=== PATIENT | male | born 1965 | race Caucasian/White ===

== ENCOUNTER 2020-09-18 08:20 | Outpatient (CLI) | payer MEDICARE, MEDICAID, SELFPAY ==
--- NOTE | 2020-09-18 08:34 | CTR_ITS ---
PROCEDURE INFORMATION: Exam: CTA Angiogram of the Abdominal Aorta and Bilateral Lower Extremities (Run-off) With IV Contrast Exam date and time: 09/18/2020 8:34 AM Age: 55 years old Clinical indication: Other: Lower extremity pain/swelling/cramping; Additional info: Peripheral vascular dz/abnormal cindy TECHNIQUE: Imaging protocol: CT angiogram of the abdominal aorta, pelvis and bilateral lower extremities with IV iodinated contrast. 3D rendering (Not supervised by radiologist): MIP and/or 3D reconstructed images were created by the technologist. Radiation optimization: All CT scans at this facility use at least one of these dose optimization techniques: automated exposure control; mA and/or kV adjustment per patient size (includes targeted exams where dose is matched to clinical indication); or iterative reconstruction. Contrast material: OMNI 350; Contrast volume: 95 ml; Contrast route: INTRAVENOUS (IV); COMPARISON: No relevant prior studies available. RADIATION DOSE METRICS: Total DLP (mGy-cm): 1921.54 FINDINGS: Aorta: There is atherosclerotic calcification in the aorta. There is no aortic aneurysm. No aortic dissection. Celiac trunk and mesenteric arteries: No occlusion or significant stenosis. Renal arteries: No occlusion or significant stenosis. Right iliac arteries: There is calcified plaque in the right common and external iliac arteries. There is mild external iliac artery stenosis.. Right femoral/popliteal arteries: There is prominent plaquing in the right common femoral artery and origins of the superior femoral and deep femoral arteries. There are focal stenoses at the origins of the right superficial femoral artery and deep femoral artery. There is calcified plaque in the superficial femoral artery with focal moderate distal stenosis. The popliteal artery is patent.. Right infrapopliteal arteries: The right anterior tibial artery is occluded at the mid calf. The dorsalis pedis reconstitutes via the peroneal artery. No significant stenosis is seen in the right peroneal and posterior tibial arteries.. Left iliac arteries: There is prominent atherosclerotic plaque in the left external iliac artery with high-grade stenosis.. Left femoral/popliteal arteries: There is prominent atherosclerotic plaque in the left superficial femoral artery with complete occlusion of the midportion. The distal portion and left popliteal artery reconstitute via collateral vessels. Left infrapopliteal arteries: The left anterior tibial artery is occluded in the mid calf. The dorsalis pedis artery reconstitutes via collaterals. No significant stenosis is seen in the left posterior tibial and peroneal arteries.. Liver: Fatty liver. Gallbladder and bile ducts: Cholecystectomy. Normal bile ducts. Pancreas: Unremarkable. No mass. No ductal dilation. Spleen: Normal. No splenomegaly. Adrenals: Normal. No mass. Kidneys and ureters: Normal. No mass. Stomach and bowel: Unremarkable. No obstruction. No mucosal thickening. Appendix: No evidence of appendicitis. Bladder: Unremarkable. No mass. Reproductive: Unremarkable as visualized. Intraperitoneal space: Unremarkable. No free air. No significant fluid collection. Lymph nodes: No lymphadenopathy. Bones/joints: No acute fracture. No dislocation. Soft tissues: Unremarkable. CT/CT angio abd aorta runof [id number] IMPRESSION: 1. High-grade stenosis in the left external iliac artery. 2. Prominent plaque in the right common femoral artery with stenoses at the origins of the right superficial femoral and deep femoral arteries. 3. The mid left superficial femoral artery is occluded. The distal portion and popliteal artery reconstitute via collaterals. 4. Multiple [id number]-dz-mwaeebru stenoses in the right superficial femoral artery and calf vessels. The anterior tibial arteries are occluded in the mid calf bilaterally. Radiation Dose CTDIVOL = (mGy): DLP = 1921.54 (mGy-cm)
[2020-09-18] MEDS: iohexol 350 mg/mL 100 mL Btl IV (09:06)
== END 2020-09-18 08:21 | disposition home or self-care (01) ==
LOC: RAD 08:30
PROVIDERS: PCP Family Medicine; Visit Provider Family Medicine
DX: I73.9 Peripheral vascular disease, unspecified (principal); R09.89 Other specified symptoms and signs involving the circulatory and respiratory systems; R68.89 Other general symptoms and signs; I70.8 Atherosclerosis of other arteries
CPT/HCPCS: 75635

== ENCOUNTER → 2024-08-13 15:30 | Outpatient (BNVA) | payer MEDICARE, MEDICAID, SELFPAY | PROVIDERS: PCP Family Medicine; Visit Provider Family Medicine | DX: N39.0 Urinary tract infection, site not specified (principal); E11.9 Type 2 diabetes mellitus without complications; R63.1 Polydipsia; R35.89 Other polyuria | CPT/HCPCS: 80053; 83036; 85025 ==

== ENCOUNTER → 2024-12-10 15:27 | Outpatient (BNVA) | payer MEDICARE, MEDICAID, SELFPAY | PROVIDERS: PCP Family Medicine; Visit Provider Family Medicine | DX: E11.65 Type 2 diabetes mellitus with hyperglycemia (principal); K76.0 Fatty (change of) liver, not elsewhere classified; F41.8 Other specified anxiety disorders; I25.2 Old myocardial infarction | CPT/HCPCS: 80053; 80061; 81000; 82043; 83036; 84439; 84443; 85025 ==

== ENCOUNTER 2024-12-15 14:34 | Inpatient (IN) | payer MEDICARE, MEDICAID, SELFPAY ==
[2024-12-15] VITALS (63 sets, daily range): BP systolic 87–131; BP diastolic 52–68; PULSE 86–101; RESP 10–29; TEMP 36.6; O2SAT 95–100; BMI 22.2
--- OUTSIDE RECORDS SUMMARY | 2024-12-15 14:37 | XMS_ITS | Patient Health Record ---
Author Organization [facility] Address [address] [place] [address] Care Team Providers Care Esthetics Instructor Name Role Phone ( [facility] ), PHYSICIAN NOT IDENTIFIED Primary Care Provider Unavailable Salinas Curry Unavailable [phone] Allergies Allergen (clinical drug ingredient) Drug/Non Drug Allergy documented on EMR Reaction Allergy Type Onset Date Status gabapentin Gabapentin Unknown Drug Allergy Activ e amitriptyline Amitriptyline Unknown Drug Allergy Active Reason For Referral No Information Social History Sex Assigned At : Social History Observation Description Sex Assigned At Male Vital Signs Temperature 97.4 degrees Fahrenheit 04/17/2024 Encounters Encounter Location Date Provider Diagnosis [facility] [address] [place] [address] 01/15/[address] [facility] [address] [place] [address] 02/15/[address] [facility] [address] [place] [address] 03/07/[address] [facility] [address] [place] [address] 04/17/[address] [facility] [address] [place] [address] 04/30/[address] [facility] [address] [place] [address] 03/04/[address] [facility] [address] [place] [address] 04/01/2024 Salinas Curry Plan Of Treatment No Information Insurance Providers Payer Name Payer Address Payer Phone Subscriber Number Group Number Insured Name Patient Relationship to Insured Coverage Start Date Coverage End Date Medicaid [address] [place] [phone] [id number] Jose Morgan Self - patient is the insured [employer] [address] [address] [place] [address] [phone] [id number] Jose Morgan Self - patient is the insured [employer] [address] [place] [address] [phone] [id number] Jose Morgan Self - patient is the insured Medical (General) History Medical History History ICD Code seasonal allergies Arthritis Cataracts Glaucoma fibromyalgia scoliosis Nerve Damage menieres disease
--- NOTE | 2024-12-15 14:40 | ECG_ITS ---
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 Measurements Intervals Wilson Rate: 91 P: 52 GA: 143 QRS: 44 QRSD: 77 T: 45 QT: 331 QTc: 408 Interpretive Statements SINUS RHYTHM No previous ECG available for comparison Electronically Signed On 12-15-2024 20:11:38 CDT by René Reina M.D. [email or web address] [id number]
--- NOTE | 2024-12-15 14:50 | XRR_ITS ---
PROCEDURE INFORMATION: Exam: XR Chest Exam date and time: 12/15/2024 3:03 PM Age: 59 years old Clinical indication: Other: Weakness; Additional info: Weakness; Hyperglycemia TECHNIQUE: Imaging protocol: Radiologic exam of the chest. Views: 1 view. COMPARISON: CT angio abd aorta runof [id number] 09/18/2020 9:05 AM FINDINGS: Lungs: Unremarkable. No consolidation. Pleural spaces: Unremarkable. No pleural effusion. No pneumothorax. Heart/Mediastinum: Unremarkable. No cardiomegaly. Bones/joints: Dextroscoliosis of the thoracolumbar spine. Organs: Cholecystectomy clips. XR/XR chest 1V portable [id number] IMPRESSION: No acute findings.
--- NOTE | 2024-12-15 14:51 | W.ED.RECABL ---
HPI - Recheck/Abnormal Lab/Rx General: Chief Complaint: Recheck/Abnormal Lab/Rx Stated Complaint: hyperglycemia; weakness Time Seen by Provider: 12/15/24 14:41 Source: patient and EMS Mode of arrival: EMS Limitations: no limitations History of Present Illness: 59-year-old male states been having increasing weakness over the last 3 months states has been having unintentional weight loss along with difficulty walking states today has not really been able to walk he is also newly diagnosed with diabetes sugars over 600 he denies any vomiting or diarrhea states he has pain everywhere but does not complain of any specific pain. Related Data Home Medications ?Medication ?Instructions ?Recorded ?Confirmed estradiol 2 mg tablet 6 mg PO DAILY 07/12/24 12/10/24 Held on 12/10/24. Instructions: Dose Change Previous Rx's ?Medication ?Instructions ?Recorded aspirin 81 mg chewable tablet 81 mg PO DAILY #90 tabs 07/16/24 rosuvastatin 20 mg tablet 20 mg PO DAILY #90 tabs 07/16/24 mupirocin 2 % topical ointment 1 applic topical TID #15 grams 12/10/24 ([facility]) Allergies Allergy/AdvReac Type Severity Reaction Status Date / Time amitriptyline Allergy ADR-Drowsy Verified 12/15/24 14:40 gabapentin (From Neurontin) Allergy Unknown Verified 12/10/24 14:24 [facility] ED [facility]: Medical History (Updated 12/10/24 @ 16:55 by Deepika Mendez MD) Type 2 diabetes mellitus A1C 7.03 November 2021 COPD (chronic obstructive pulmonary disease) PAD (peripheral artery disease) has had vascular surgery Hx of myocardial infarction NM stress test at [facility] preop 3.12.22 showed old small anterior wall fixed defect Depression with anxiety Screening for lung cancer Nicotine dependence, cigarettes, in remission 46pk yr hx; quit 2021; Neck pain Hyperlipidemia, mixed had been on rosuvastatin--not currently taking Non-alcoholic fatty liver disease Anxiety Menieres disease Fibromyalgia Transgender man on hormone therapy Dr. 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 Lea at [facility] Hx of hemorrhoidectomy [facility] 5.21 Hx of vascular surgery angioplasty and Stenting of L superficial femoral artery and of L common and external iliac arteries 11.16.20; extensive L iliofemoral endarterectomy w/ Dacron patch angioplasty 11.18.21; Extensive R iliofemoral endarterectomy 02.10.22 History of cholecystectomy Status post anal fissurectomy 1999 Family History Father No problems noted. 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 Hospitalist wants patient placed in the ICU on insulin drip did speak to . no signs of infection. vitals normal Medical Records I reviewed the patient's medical records. Lab Data I reviewed the patient's lab results. 12/15/24 15:09 12/15/24 15:09 Laboratory Results WBC 8.91 10^3/uL (3.29-11.43) 12/15/24 15:09 RBC 3.74 10^6/uL (3.85-5.65) L 12/15/24 15:09 Hgb 11.40 g/dL (11.27-16.99) 12/15/24 15:09 Hct 32.1 % (37-53) L 12/15/24 15:09 MCV 85.8 fl (82-101) 12/15/24 15:09 MCH 30.5 pg (27-33) 12/15/24 15:09 MCHC 35.5 g/dL (30-55) 12/15/24 15:09 RDW 12.8 % (12.1-15.1) 12/15/24 15:09 Plt Count 282 10^3/cmm (157-399) 12/15/24 15:09 MPV 10.2 fL (7.4-10.4) 12/15/24 15:09 Neut % (Auto) 76.5 % 12/15/24 15:09 Lymph % (Auto) 14.8 % 12/15/24 15:09 [place] % (Auto) 6.7 % 12/15/24 15:09 Eos % (Auto) 0.1 % 12/15/24 15:09 Baso % (Auto) 0.3 % 12/15/24 15:09 Neut # (Auto) 6.81 10^3/uL (1.8-7.7) 12/15/24 15:09 Lymph # (Auto) 1.3 10^3/uL (0.8-4.8) 12/15/24 15:09 [place] # (Auto) 0.6 10^3/uL (0.2-0.9) 12/15/24 15:09 Eos # (Auto) 0.0 10^3/uL (0.0-0.8) 12/15/24 15:09 Baso # (Auto) 0.0 10^3/uL (0.0-0.1) 12/15/24 15:09 Nucleated RBC % (auto) 0 % 12/15/24 15:09 Nucleated RBCs # 0.0 /100WBC 12/15/24 15:09 Specimen Type Arterial 12/15/24 16:18 Sample Site Radial, left 12/15/24 16:18 ABG pH 7.59 (7.35-7.45) H* 12/15/24 16:18 ABG pCO2 18.1 mmHg (35-45) L* 12/15/24 16:18 ABG pO2 144.0 mmHg (80.0-100.0) H 12/15/24 16:18 ABG PO2/FiO2 Ratio 685 12/15/24 16:18 ABG HCO3 17.2 mmol/L (22-26) L 12/15/24 16:18 ABG O2 Saturation 98.8 12/15/24 16:18 ABG Base Excess -2.5 mmol/L (-2.0-2.0) L 12/15/24 16:18 Osei Test Pos 12/15/24 16:18 A-a O2 Gradient Not Reportable 12/15/24 16:18 Hematocrit 36.6 % (42-52) L 12/15/24 16:18 Hgb O2 Saturation 98.1 % (95-100) 12/15/24 16:18 Carboxyhemoglobin 0.8 %THgb (0.4-20.1) 12/15/24 16:18 Methemoglobin < 0.0 % (0.4-1.5) L 12/15/24 16:18 Total Hemoglobin 12.0 g/dL (14-18) L 12/15/24 16:18 Sodium 121.0 mmol/L (131-143) L 12/15/24 16:18 Potassium 5.2 mmol/L (3.5-5.0) H 12/15/24 16:18 Glucose 437.0 mg/dL (70-115) H 12/15/24 16:18 Ionized Calcium 1.2 mmol/L (1.1-1.4) 12/15/24 16:18 O2 Delivery Device Room air 12/15/24 16:18 FiO2 21.0 % 12/15/24 16:18 Facilities Officer ID glc 12/15/24 16:18 Sodium 119 mmol/L (136-145) L* 12/15/24 15:09 Potassium 6.1 mmol/L (3.5-5.1) H 12/15/24 15:09 Chloride 86 mmol/L (98-107) L 12/15/24 15:09 Carbon Dioxide 20 mmol/L (22-29) L 12/15/24 15:09 Anion Gap 19.1 (5-19) H 12/15/24 15:09 BUN 34 mg/dL (6-20) H 12/15/24 15:09 Creatinine 0.9 mg/dL (0.7-1.2) 12/15/24 15:09 GFR Calculation 86.7 mL/min (90-130) L 12/15/24 15:09 Glucose 688 mg/dL (65-115) H* 12/15/24 15:09 Calculated Osmolality 288 mOsm/kg (285-295) 12/15/24 15:09 Calcium 8.4 mg/dL (8.5-10.5) L 12/15/24 15:09 Magnesium 1.8 mg/dL (1.7-2.3) 12/15/24 15:09 Total Bilirubin 0.4 mg/dL (0.15-1.2) 12/15/24 15:09 AST 8 U/L (0-40) 12/15/24 15:09 ALT 8 U/L (0-41) 12/15/24 15:09 Alkaline Phosphatase 73 U/L (40-130) 12/15/24 15:09 Total Protein 6.1 g/dL (6.6-8.7) L 12/15/24 15:09 Albumin 3.3 g/dL (3.5-5.2) L 12/15/24 15:09 Globulin 2.8 g/dL (1.3-4.6) 12/15/24 15:09 TSH 1.00 uIU/mL (0.27-4.20) 12/15/24 15:09 Urine Color Yellow (Yellow) 12/15/24 15:08 Urine Appearance Clear (CLEAR) 12/15/24 15:08 Urine pH 6.0 (5-7) 12/15/24 15:08 Ur Specific [place] 1.023 (1.005-1.030) 12/15/24 15:08 Urine Protein Negative (Negative) 12/15/24 15:08 Urine Glucose (UA) 2+ (Normal) H 12/15/24 15:08 Urine Ketones 1+ (Negative) H 12/15/24 15:08 Urine Blood Negative (Negative) 12/15/24 15:08 Urine Nitrate Negative (Negative) 12/15/24 15:08 Urine Bilirubin Negative (Negative) 12/15/24 15:08 Urine Urobilinogen 0.2 mg/dL (Negative) 12/15/24 15:08 Ur Leukocyte Esterase Negative (Negative) 12/15/24 15:08 Urine RBC 0-2 /hpf (0-2) 12/15/24 15:08 Urine WBC 0-5 /hpf (0-5) 12/15/24 15:08 Ur Squamous Epith Cells 0-5 /hpf (0-5) 12/15/24 15:08 Amorphous Sediment Not Reportable 12/15/24 15:08 Urine Bacteria None seen /hpf (NONE) 12/15/24 15:08 Hyaline Casts 0-4 /lpf H 12/15/24 15:08 Serum Ketones Negative (Negative) 12/15/24 15:09 All radiology interpretation(s) finalized by discharge EKG Data EKG 1: I personally reviewed and interpreted this EKG as follows: EKG interpretation date: 12/15/24 EKG interpretation time: 15:18 Interpretation: nsr hr [address] elevation qrs 77 qtc 380 Discharge Plan Discharge Patient Disposition: Admitted As Inpatient Admit Provider: James Bueno Condition: Stable Coding Level of Care Code ED Consultant Teacher for Chg Mitul
[2024-12-15 15:25] LABS: Hematocrit 32.1 % (37-53); Hemoglobin 11.40 g/dL (11.27-16.99); Mean Corpuscular HGB Conc 35.5 g/dL (30-55); Mean Corpuscular Hemoglobin 30.5 pg (27-33); Mean Corpuscular Volume 85.8 fl (82-101); Nucleated Red Blood Cells % 0 %; Platelet Count 282 10^3/cmm (157-399); Red Blood Count 3.74 10^6/uL (3.85-5.65); White Blood Count 8.91 10^3/uL (3.29-11.43)
[2024-12-15 15:31] LABS: Glucose Urine UA 2+ (Normal); Nitrate Urine Negative (Negative); Specific Gravity, Urine 1.023 (1.005-1.030)
[2024-12-15 15:36] LABS: Add Urine Microscopic? YES
[2024-12-15] MEDS: insulin regular-human 100 units/1 mL 10 UNIT IVP (15:40)
[2024-12-15 15:51] LABS: Alanine Aminotransferase 8 U/L (0-41); Albumin Level 3.3 g/dL (3.5-5.2); Alkaline Phosphatase 73 U/L (40-130); Anion Gap 19.1 (5-19); Aspartate Amino Transferase 8 U/L (0-40); Blood Urea Nitrogen 34 mg/dL (6-20); Calcium 8.4 mg/dL (8.5-10.5); Carbon Dioxide 20 mmol/L (22-29); Chloride 86 mmol/L (98-107); Creatinine Clr Calc Pharmacy 82.7896; Globulin 2.8 g/dL (1.3-4.6); Magnesium 1.8 mg/dL (1.7-2.3); Osmolality Calculated 288 mOsm/kg (285-295); Potassium 6.1 mmol/L (3.5-5.1); Thyroid Stimulating Hormone 1.00 uIU/mL (0.27-4.20); Total Protein 6.1 g/dL (6.6-8.7)
[2024-12-15 15:55] LABS: Glucose 688 mg/dL (65-115); Sodium 119 mmol/L (136-145)
[2024-12-15 16:20] LABS: Ketone (Acetest) Serum Negative (Negative)
[2024-12-15 16:31] LABS: Arterial Blood Gas Hematocrit 36.6 % (42-52); Blood Gas Allen Test Pos; Blood Gas Operator Identificat glc; Blood Gas Sample Site Radial, left; Blood Gas Sample Type Arterial; Carboxyhemoglobin 0.8 %THgb (0.4-20.1); Glucose Level-ABG 437.0 mg/dL (70-115); HCO3 ABG 17.2 mmol/L (22-26); Ionized Calcium Level - ABG 1.2 mmol/L (1.1-1.4); Methemoglobin < 0.0 % (0.4-1.5); Oxygen Saturation ABG 98.8; PO2 ABG 144.0 mmHg (80.0-100.0); PO2 FiO2 Ratio Arterial Blood 685; Potassium Level - ABG 5.2 mmol/L (3.5-5.0); Sodium Level - ABG 121.0 mmol/L (131-143)
[2024-12-15 16:33] LABS: ABG PCO2 18.1 mmHg (35-45); ABG PH Result 7.59 (7.35-7.45)
--- NOTE | 2024-12-15 16:57 | CTR_ITS ---
PROCEDURE INFORMATION: Exam: CT Chest Without Contrast; Diagnostic Exam date and time: 12/15/2024 5:11 PM Age: 59 years old Clinical indication: Other: Weight loss, fatigue, weakness, abdominal pain TECHNIQUE: Imaging protocol: Diagnostic computed tomography of the chest without contrast. Radiation optimization: All CT scans at this facility use at least one of these dose optimization techniques: automated exposure control; mA and/or kV adjustment per patient size (includes targeted exams where dose is matched to clinical indication); or iterative reconstruction. COMPARISON: CR (CHEST, ) 12/15/2024 3:03 PM RADIATION DOSE METRICS: Total DLP (mGy-cm): 521.39 FINDINGS: Lungs: Several sub 6 mm nodules are seen in the superior segment right lower lobe (for example a 5 mm nodule on series 3, image 29 and a 4 mm nodule on image 26). No focal consolidation or generalized interstitial process. Pleural spaces: Unremarkable. No pneumothorax. No pleural effusion. Heart: Unremarkable. No cardiomegaly. No pericardial effusion. Coronary arteries: Mild coronary artery calcifications. Lymph nodes: Unremarkable. No enlarged lymph nodes. Vasculature: Unremarkable. No aortic aneurysm. Bones/joints: S shaped curvature of the thoracolumbar spine. Mild degenerative changes of the thoracic spine. Soft tissues: Dense breast tissue bilaterally appears symmetric and is likely within normal physiologic limits. risk factors), consider optional CT Chest at 12 months. (Reference: Asad) REFERENCES: Asad Tena et al. Guidelines for Management of Incidental Pulmonary Nodules Detected on CT Images: From the Fleischner Society 2017. Radiology. 2017;284(1):228-243. PROCEDURE INFORMATION: Exam: CT Abdomen And Pelvis Without Contrast Exam date and time: 12/15/2024 5:11 PM Age: 59 years old Clinical indication: Other: Weight loss, fatigue, weakness, abdominal pain TECHNIQUE: Imaging protocol: Computed tomography of the abdomen and pelvis without contrast. Radiation optimization: All CT scans at this facility use at least one of these dose optimization techniques: automated exposure control; mA and/or kV adjustment per patient size (includes targeted exams where dose is matched to clinical indication); or iterative reconstruction. COMPARISON: CT angio abd aorta runof [id number] 09/18/2020 9:05 AM RADIATION DOSE METRICS: Total DLP (mGy-cm): 521.39 FINDINGS: Liver: Previously described hepatic steatosis appears to be improving. Gallbladder and biliary ducts: Status post cholecystectomy. Pancreas: Normal. No ductal dilation. Spleen: Normal. No splenomegaly. Adrenal glands: Normal. No mass. Kidneys and ureters: Extrarenal pelves bilaterally. Calcifications in the renal sinuses bilaterally are favored to be vascular. Stomach and bowel: Moderate stool throughout the colon. No evidence of bowel obstruction. Gastric wall thickening is likely exaggerated by underdistention. Appendix: No evidence of appendicitis. Intraperitoneal space: Unremarkable. No free air. No significant fluid collection. Vasculature: Moderate atherosclerotic aortoiliac calcifications. No abdominal aortic aneurysm. Left common/external iliac artery stent. Patency not assessed without intravenous contrast. Lymph nodes: Unremarkable. No enlarged lymph nodes. Urinary bladder: Unremarkable as visualized. Reproductive: Unremarkable as visualized. Bones/joints: Unremarkable. No acute fracture. Soft tissues: Unremarkable. CT/[place] [id number] IMPRESSION: 1. No acute findings in the chest. 2. Sub 6 mm pulmonary nodules. For patients at low risk (minimal or absent history of smoking and of other known risk factors), no routine follow-up is indicated. For patients at high risk (history of smoking or of other known IMPRESSION: 1. Gastric wall thickening is likely exaggerated by underdistention. However, underlying gastritis is not excluded. 2. Moderate colonic stool can be seen with constipation.
--- NOTE | 2024-12-15 17:04 | P.HP_ITS ---
Providers/Chief Complaint 2 Admitting Physician: James Bueno MD Primary Care Provider: Deepika Mendez MD Chief Complaint: hyperglycemia; weakness History of Present Illness Jose Morgan is a 59 year old male with a past medical history of type 2 diabetes mellitus, COPD peripheral vascular disease, hyperlipidemia, who presents [facility] due to polyuria, polydipsia, fatigue, malaise, abdominal pain dizziness, weight loss over 20 pounds last few months, generalized weakness. Patient tells me that for the last few weeks, he has been feeling fatigue, malaise, dizziness, he has had weight loss over 20 pounds, generalized weakness with hyperglycemia. His primary care provider did blood work on 10 December, his blood sugar was elevated, there was concerns for DKA, so he went to the emergency room at [facility], he tells me that they did a workup in the emergency room got his blood sugars down and discharged him home, but he continues to have fatigue, malaise, abdominal pain, dizziness, generalized weakness, no facial droop, no slurring his words, no full code weakness, no diarrhea, has constipation, no cough, no dysuria, he does have a diabetic wound he tells me on the left foot that bothers him, but no worsening, no chest pain, no palpitations, currently he is undergoing transgender evaluation, he was on estradiol 2 weeks ago it was recently switched to another medication he does not remember Review of Systems 2 Const: Reports: change in weight, fatigue and malaise Card: Denies: chest pain Resp: Denies: dyspnea GI: Reports: abdominal pain : Reports: urinary frequency; Denies: flank pain Musc: Denies: neck pain or back pain Skin/Breast: Reports: rash Neuro: Denies: headache(s) Medications/Allergies Home Medications ?Medication ?Instructions ?Recorded ?Confirmed ?Last Taken ?Type estradiol 2 mg tablet 6 mg PO DAILY 07/12/2412/10 Unknown History Held on 12/10/24. Instructions: Dose Change aspirin 81 mg chewable tablet 81 mg PO DAILY #90 tabs 07/16/24 12/10/24 Unknown Rx rosuvastatin 20 mg tablet 20 mg PO DAILY #90 tabs 07/0212/10/24 Unknown Rx mupirocin 2 % topical ointment 1 applic topical TID #1 5 grams 12/10/24 12/10/24 Unknown Rx ([facility]) Allergies Allergy/AdvReac Type Severity Reaction Status Date / Time amitriptyline Allergy ADR-Drowsy Verified 12/15/24 14:40 gabapentin (From Neurontin) Allergy Unknown Verified 12/10/24 14:24 PFSH Acute 2 PFSH: Medical History Type 2 diabetes mellitus A1C 7.03 November 2021 COPD (chronic obstructive pulmonary disease) PAD (peripheral artery disease) has had vascular surgery Hx of myocardial infarction NM stress test at [facility] preop 3.9.21 showed old small anterior wall fixed defect Depression with anxiety Screening for lung cancer Nicotine dependence, cigarettes, in remission 46pk yr hx; quit 2021; Neck pain Hyperlipidemia, mixed had been on rosuvastatin--not currently taking Non-alcoholic fatty liver disease Anxiety Menieres disease Fibromyalgia Transgender man on hormone therapy Dr. Cramer--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 Lea at [facility] Hx of hemorrhoidectomy [facility] 5.21 Hx of vascular surgery angioplasty and Stenting of L superficial femoral artery and of L common and external iliac arteries 8.16.21; extensive L iliofemoral endarterectomy w/ Dacron patch angioplasty 8.18.22; Extensive R iliofemoral endarterectomy 11..22 History of cholecystectomy Status post anal fissurectomy 1999 Family History Father No problems noted. 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; 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, nena's Current gender identity: Female Vitals/I&O/Wt Last Vital Signs Temp 97.9 F 12/15/24 14:35 Pulse 93 12/15/24 16:51 Resp 16 12/15/24 15:41 BP 97/63 12/15/24 16:51 Pulse Ox 100 12/15/24 16:51 O2 Del Method Nasal Cannula 12/15/24 16:39 O2 Flow Rate 2 12/15/24 16:39 12/15/24 12/15/24 12/15/24 06:59 14:59 22:59 Intake Total 1999 Balance 1999 Weight last 48 hrs Weight 64.41 kg Physical Exam 2 Const: COMMON NORMALS: no acute distress and patient oriented x3 Eye: COMMON NORMALS: Equal, round and reactive pupils present and EOMs intact bilaterally Resp: COMMON NORMALS: normal respiratory effort, No retractions, No use of accessory muscles and clear to auscultation bilaterally AUSCULTATION: clear to auscultation bilaterally Cardio: COMMON NORMALS: no JVD, regular rate, regular rhythm, S1 normal heart sound present and S2 normal heart sound present RATE: regular rate RHYTHM: regular rhythm HEART SOUNDS: S1 normal heart sound present and S2 normal heart sound present GI: COMMON NORMALS: Normal to inspection, nondistended, normoactive bowel sounds present, Soft to palpation and non-tender Extremity: COMMON NORMALS: no pedal edema Neuro: COMMON NORMALS: patient oriented x3, CN's II-XII intact bilaterally and moves all extremities Psych: COMMON NORMALS: mental status grossly normal Data 12/15/24 15:09 12/15/24 15:09 A&P Assessment and plan 1. Hyperosmolar hyperglycemic state (HHS): 2. Pseudohyponatremia: 3. Hyperkalemia: 4. Dehydration: Plan: Hyperosmolar hyperglycemic state - pH 7.59, sodium 119, glucose 688, serum osmolality 288 Plan - Monitor blood sugar hourly - Monitor BMP every 4 hours - Monitor serum osmolality every 4 hours - Continue IV fluids - Continue insulin drip -Stop drip once blood sugar less than 250, and serum osmolality less than 300 - Full code - Lovenox for DVT prophylaxis Hyperkalemia - Has received 10 units IV push insulin, started on insulin drip, calcium gluconate - Repeat BMP - Telemetry monitoring Pseudohyponatremia, corrected serum sodium 128 Weight loss, fatigue, malaise - Etiology unclear - CT scan abdomen pelvis Diabetic wound - Left lower extremity - Between 2nd and 3rd digit - No surrounding erythema, swelling, warmth - CRP, Pro-Thomas, sed rate, blood cultures - Monitor Full code Lovenox DVT prophylaxis PDMP PDMP Reviewed: Not Reviewed Attestations 2 Medical Necessity Statement*: Patient requires hospitalization, inpatient, for HHS, hyperkalemia, pseudohyponatremia, dehydration, hyperglycemia Coding Level of Care Code Critical Care >/= 30 minutes Critical care time (in minutes): 45 The high probability of a clinically significant, sudden or life threatening deterioration, as referenced in this documentation, required my full and direct attention, intervention and personal management. The critical care time shown is in addition to time spent performing any reported separately billable procedures and includes the following: [x] Data and vital sign review and interpretation [x ] Patient assessment, examination and intervention [x] Medication orders and management [x] Patient/Family updates as able [x] Care Coordination and Documentation. Diagnoses Hyperosmolar hyperglycemic state (HHS) E11.00 Pseudohyponatremia R79.89 Hyperkalemia E87.5 Dehydration E86.0
[2024-12-15 17:05] LABS: Troponin(5th) Baseline 14 ng/L (0-15)
[2024-12-15 17:12] LABS: HIV 1 & 2 Antigen Non-Reactive (Non-Reactiv)
[2024-12-15 17:13] LABS: Procalcitonin 0.19 ng/mL (0-0.5)
[2024-12-15 17:18] LABS: Hepatitis A Antibody IgM Non-Reactive (Nonreactive); Hepatitis B Surface Antigen Non-Reactive (Nonreactive)
[2024-12-15 17:27] LABS: Troponin 5 2HR 15.54 ng/L (0-15); Troponin 5 2HR Delta 1.54 ABS# (0-10)
[2024-12-15] MEDS: calcium gluconate 0.9% NaCL 1 GM/50 ML PREMIX IV (18:14)
[2024-12-15] MEDS: pantoprazole 40 mg SDV IVP (18:15)
[2024-12-15] MEDS: INSULIN REGULAR IN 0.9 % NACL 100 UNIT/100 ML BAG 6.5 UNIT IV (18:30)
--- NOTE | 2024-12-15 18:42 | ECG_ITS ---
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 Measurements Intervals [place] Rate: 90 P: 65 HI: 133 QRS: 45 QRSD: 98 T: 61 QT: 344 QTc: 421 Interpretive Statements SINUS RHYTHM Compared to ECG 12/15/2024 15:18:44 No significant changes Electronically Signed On 12-15-2024 20:22:13 CDT by René Reina M.D. [email or web address]
[2024-12-15 19:06] LABS: Anion Gap 18.0 (5-19); Blood Urea Nitrogen 28 mg/dL (6-20); Calcium 9.1 mg/dL (8.5-10.5); Carbon Dioxide 20 mmol/L (22-29); Chloride 92 mmol/L (98-107); Cholesterol 88 mg/dL (0-200); Creatinine Clr Calc Pharmacy 106.4438; Glucose 320 mg/dL (65-115); HDL Cholesterol 34 mg/dL (60-100); Lipase 77 U/L (13-60); Osmolality Calculated 278 mOsm/kg (285-295); Potassium 5.0 mmol/L (3.5-5.1); Sodium 125 mmol/L (136-145); Triglycerides 218 mg/dL (0-150)
[2024-12-15 19:07] LABS: Lactic Sepsis W/Reflex 1.5 mmol/L (0.5-2.2)
[2024-12-15] MEDS: morphine 4 mg/mL SDV 1 mL 2 MG IVP (19:08)
[2024-12-15 19:13] LABS: Respiratory Syncytial Virus Ce NEGATIVE (Negative); SARS-CoV-2 PCR NEGATIVE (Negative)
[2024-12-15 21:53] LABS: Anion Gap 14.1 (5-19); Blood Urea Nitrogen 24 mg/dL (6-20); Calcium 8.8 mg/dL (8.5-10.5); Carbon Dioxide 22 mmol/L (22-29); Chloride 97 mmol/L (98-107); Creatinine Clr Calc Pharmacy 106.4438; Glucose 213 mg/dL (65-115); Osmolality Calculated 278 mOsm/kg (285-295); Potassium 4.1 mmol/L (3.5-5.1); Sodium 129 mmol/L (136-145); Troponin 5 6HR 14.84 ng/L (0-15); Troponin 5 6HR Delta 0.84 ng/L (0-12)
--- NOTE | 2024-12-15 22:13 | PC.NURSE ---
Following 2100 blood sugar, attempted to contact physician for further orders on how to proceed with insulin drip. Was able to reach physician at 2150. Discussed plan as stated in Dr. Bueno's H&P, recent labs(trending sodium), diagnoses, and ordered to stop insulin drip, change blood sugars to q4 hours through night then AC and HS following with low dose sliding scale, and decrease NS to 75 ml per hour.
--- NOTE | 2024-12-15 22:42 | ECG_ITS ---
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
[2024-12-16] VITALS (88 sets, daily range): BP systolic 84–127; BP diastolic 46–86; PULSE 81–100; RESP 6–29; TEMP 36.6–37.2; O2SAT 96–100
[2024-12-16 02:27] LABS: Anion Gap 13.5 (5-19); Blood Urea Nitrogen 20 mg/dL (6-20); Calcium 8.9 mg/dL (8.5-10.5); Carbon Dioxide 22 mmol/L (22-29); Chloride 100 mmol/L (98-107); Creatinine Clr Calc Pharmacy 106.4438; Glucose 220 mg/dL (65-115); Osmolality Calculated 281 mOsm/kg (285-295); Potassium 4.5 mmol/L (3.5-5.1); Sodium 131 mmol/L (136-145)
[2024-12-16] MEDS: pantoprazole 40 mg SDV IVP ×2 (05:35→17:35)
[2024-12-16 06:12] LABS: Anion Gap 15.8 (5-19); Blood Urea Nitrogen 20 mg/dL (6-20); Calcium 8.8 mg/dL (8.5-10.5); Carbon Dioxide 20 mmol/L (22-29); Chloride 103 mmol/L (98-107); Creatinine Clr Calc Pharmacy 104.8754; Glucose 242 mg/dL (65-115); Osmolality Calculated 289 mOsm/kg (285-295); Potassium 4.8 mmol/L (3.5-5.1); Sodium 134 mmol/L (136-145)
[2024-12-16] MEDS: morphine 4 mg/mL SDV 1 mL 2 MG IVP (09:03)
[2024-12-16] MEDS: insulin glargine 100 units/1 mL 10 UNIT SUBCUT ×2 (09:10→17:46)
--- NOTE | 2024-12-16 09:48 | CT_ITS ---
WS: [id number] CT LEFT FOOT WITH CONTRAST HISTORY: left foot diabetic ulcer Technique: All CT scans at [facility] use at least one of these dose optimization techniques: automated exposure control; mA and/or kV adjustment per patient size (includes targeted exams where dose is matched to clinical indication); or iterative reconstruction. DLP: 140.61 mGy.cm COMPARISON: None available. Contrast: Omnipaque 100 mL. Mild soft tissue edema surrounding the foot. Greatest amount of edema along the plantar surface of the first metatarsal phalangeal joint and surrounding the fifth metatarsophalangeal joint. This is predominantly edema with no soft tissue tract identified. There is no air in the soft tissues. There is mild cellulitis with no abscess. No destructive bone lesions. No osteolysis. Cortex is intact especially near the first and fifth metatarsophalangeal joints. Mild hammertoe deformities. CT/CT foot LT w con [id number] IMPRESSION: 1. Mild cellulitis with edema involving the first and fifth metatarsophalangea l joints along the plantar surfaces. 2. No enhancing abscess identified. 3. No osteolysis or osteomyelitis identified by CT.
[2024-12-16] MEDS: iohexol 350 mg/mL 500 mL Btl (per mL) IV (10:39)
[2024-12-16 11:47] LABS: Anion Gap 15.9 (5-19); Blood Urea Nitrogen 19 mg/dL (6-20); Calcium 8.3 mg/dL (8.5-10.5); Carbon Dioxide 21 mmol/L (22-29); Chloride 100 mmol/L (98-107); Creatinine Clr Calc Pharmacy 91.7660; Glucose 330 mg/dL (65-115); Osmolality Calculated 289 mOsm/kg (285-295); Potassium 4.9 mmol/L (3.5-5.1); Sodium 132 mmol/L (136-145)
[2024-12-16] MEDS: cefTRIAXone 1,000 mg SDV 1000 MG IVP (12:31)
--- NOTE | 2024-12-16 16:37 | P.PN_ITS ---
Vitals/I&O/Wt Last Vital Signs Temp 98.9 F 12/16/24 09:00 Pulse 97 12/16/24 11:45 Resp 19 H 12/16/24 11:45 BP 85/59 12/16/24 11:45 Pulse Ox 99 12/16/24 11:45 O2 Del Method Room Air 12/16/24 09:38 O2 Flow Rate 2 12/15/24 16:39 12/16/24 12/16/24 12/16/24 06:59 14:59 22:59 Intake Total 532.5 / 4061.05 500 / 500 Output Total 1750 / 1750 800 / 800 Balance -1217.5 / 2311.05 -300 / -300 Weight last 48 hrs Weight 62 kg Weight 64.41 kg Weight 64.41 kg Physical Exam 2 Const: COMMON NORMALS: no acute distress and patient oriented x3 Resp: COMMON NORMALS: normal respiratory effort, No retractions, No use of accessory muscles and clear to auscultation bilaterally AUSCULTATION: clear to auscultation bilaterally Cardio: COMMON NORMALS: regular rate, regular rhythm, S1 normal heart sound present and S2 normal heart sound present RATE: regular rate RHYTHM: r egular rhythm HEART SOUNDS: S1 normal heart sound present and S2 normal heart sound present GI: COMMON NORMALS: Normal to inspection, nondistended, normoactive bowel sounds present and non-tender Extremity: COMMON NORMALS: no calf tenderness and no pedal edema Neuro: COMMON NORMALS: patient oriented x3 Psych: COMMON NORMALS: mental status grossly normal Skin: NARRATIVE SKIN EXAM: Left lower extremity, interdigital space second, fourth, interdigital space areas of erythema Data 12/15/24 15:09 12/16/24 10:55 Micro: Microbiology 12/15/24 18:30 Blood Culture - Preliminary Blood SPECIMEN COLLECTED 12/15/24 18:25 Blood Culture - Preliminary Blood SPECIMEN COLLECTED A&P Assessment and plan 1. Hyperosmolar hyperglycemic state (HHS): 2. Pseudohyponatremia: 3. Hyperkalemia: 4. Dehydration: Plan: Hyperosmolar hyperglycemic state - pH 7.59, sodium 119, glucose 688, serum osmolality 288, -Resolved -Sensation to subcu insulin overnight Plan - Continue high-dose insulin -Lantus 10 units twice daily - Continue IV fluids - Full code - Lovenox for DVT prophylaxis Hyperkalemia - Resolved - Telemetry monitoring Pseudohyponatremia, resolved Weight loss, fatigue, malaise - Etiology unclear - CT scan abdomen pelvis no acute findings Diabetic wound/cellulitis - Left lower extremity - CT/CT foot LT w con [id number] IMPRESSION: 1. Mild cellulitis with edema involving the first and fifth metatarsophalangeal joints along the plantar surfaces. 2. No enhancing abscess identified. 3. No osteolysis or osteomyelitis identified by CT. - No surrounding erythema, swelling, warmth - CRP 35, Pro-Thomas 0.19, sed rate 18, blood cultures - Monitor Plan - IV vancomycin - IV Rocephin Full code Lovenox DVT prophylaxis PDMP PDMP Reviewed: Not Reviewed Attestations 2 Medical Necessity Statement*: Patient requires hospitalization for diabetic wound/cellulitis requiring IV antibiotics, hyperglycemia Diagnoses Hyperosmolar hyperglycemic state (HHS) E11.00 Pseudohyponatremia R79.89 Hyperkalemia E87.5 Dehydration E86.0
--- NOTE | 2024-12-16 16:53 | PHA.VACGOAL ---
Vancomycin Goal - Goal Vancomycin Indication:: SSTI - Therapy Current therapy:: Other Antibiotic Day of therpy:: Day []of [] . Actual body weight (kg): 136 lb 10.986 oz - Data Labs: WBC 8.91 10^3/uL (3.29-11.43) 12/15/24 15:09 RBC 3.74 10^6/uL (3.85-5.65) L 12/15/24 15:09 Hgb 11.40 g/dL (11.27-16.99) 12/15/24 15:09 Hct 32.1 % (37-53) L 12/15/24 15:09 MCV 85.8 fl (82-101) 12/15/24 15:09 MCH 30.5 pg (27-33) 12/15/24 15:09 MCHC 35.5 g/dL (30-55) 12/15/24 15:09 RDW 12.8 % (12.1-15.1) 12/15/24 15:09 Sodium 132 mmol/L (136-145) L 12/16/24 10:55 Potassium 4.9 mmol/L (3.5-5.1) 12/16/24 10:55 Chloride 100 mmol/L (98-107) 12/16/24 10:55 Carbon Dioxide 21 mmol/L (22-29) L 12/16/24 10:55 Anion Gap 15.9 (5-19) 12/16/24 10:55 BUN 19 mg/dL (6-20) 12/16/24 10:55 Creatinine 0.8 mg/dL (0.7-1.2) 12/16/24 10:55 GFR Calculation 99.3 mL/min (90-130) 12/16/24 10:55 Last dialysis session:: N/A Treatment plan:: new consult Regimen:: Medications Vancomycin HCl (Vancocin) 1,250 mg in 250 mls @ 166.667 mls/hr IV Q12H ELOY Ceftriaxone Sodium (Ceftriaxone 1,000 Mg Sdv) 1,000 mg IVP Q24H ELOY; Protocol Last Admin: 12/16/24 12:31 Dose: 1,000 mg Discontinued Medications Vancomycin HCl (Vancocin) 2,000 mg in 400 mls @ 200 mls/hr IV ONCE ONE Stop: 12/16/24 14:29 Last Admin: 12/16/24 12:31 Dose: 200 mls/hr Ordered 2000 mg loading dose, administered on 12/16 at 1231 Started maintenance dose of 1250 mg q12h. Will monitor daily and draw trough prior to 4th dose.
--- NOTE | 2024-12-16 19:11 | PC.NURSE ---
Shift SUmmary: Due to blood sugars in the 300's, Low dose sliding scale increased to high dose. Lantus change form q24 to q12. Taken for a foot CT to check for osteomyelitis. CT resulted negative. Nurse has educated patient on insulin administration and checking blood sugars. Nurse has been allowing patient to check fingerstick and administer subq insulin so he is proficient at doing so when discharged. total urine out: [id number]
[2024-12-17] VITALS (8 sets, daily range): BP systolic 81–134; BP diastolic 40–73; PULSE 79–102; RESP 16–21; TEMP 36.6–36.7; O2SAT 96–100
[2024-12-17 05:16] LABS: Hematocrit 33.4 % (37-53); Hemoglobin 11.20 g/dL (11.27-16.99); Mean Corpuscular HGB Conc 33.5 g/dL (30-55); Mean Corpuscular Hemoglobin 30.4 pg (27-33); Mean Corpuscular Volume 90.5 fl (82-101); Nucleated Red Blood Cells % 0 %; Platelet Count 264 10^3/cmm (157-399); Red Blood Count 3.69 10^6/uL (3.85-5.65); White Blood Count 6.17 10^3/uL (3.29-11.43)
[2024-12-17 05:33] LABS: Anion Gap 15.6 (5-19); Blood Urea Nitrogen 16 mg/dL (6-20); Calcium 8.8 mg/dL (8.5-10.5); Carbon Dioxide 23 mmol/L (22-29); Chloride 102 mmol/L (98-107); Creatinine Clr Calc Pharmacy 104.8754; Glucose 235 mg/dL (65-115); Osmolality Calculated 291 mOsm/kg (285-295); Potassium 4.6 mmol/L (3.5-5.1); Sodium 136 mmol/L (136-145)
[2024-12-17] MEDS: pantoprazole 40 mg SDV IVP ×2 (05:46→16:32)
[2024-12-17] MEDS: insulin glargine 100 units/1 mL 10 UNIT SUBCUT ×2 (06:20→17:12)
[2024-12-17] MEDS: cefTRIAXone 1,000 mg SDV 1000 MG IVP (11:50)
--- NOTE | 2024-12-17 13:51 | P.PN_ITS ---
Subjective 2 Subjective: Patient was seen this morning, currently alert oriented x 3, following commands, denies any fevers, no chills, no cough Vitals/I&O/Wt Last Vital Signs Temp 97.8 F 12/17/24 11:28 Pulse 92 12/17/24 11:28 Resp 20 H 12/17/24 11:28 BP 103/71 12/17/24 11:28 Pulse Ox 96 12/17/24 11:28 O2 Del Method Room Air 12/17/24 11:28 O2 Flow Rate 2 12/15/24 16:39 12/16/24 12/17/24 12/17/24 22:59 06:59 14:59 Intake Total 520 / 1020 1250 / 2270 730 / 730 Output Total 1050 / 4000 500 / 4500 500 / 500 Balance -530 / -2980 750 / -2230 230 / 230 Weight last 48 hrs Weight 65.363 kg Weight 62 kg Weight 64.41 kg Weight 64.41 kg Physical Exam 2 Const: COMMON NORMALS: no acute distress and patient oriented x3 Resp: COMMON NORMALS: normal respiratory effort, No retractions, No use of accessory muscles and clear to auscultation bilaterally AUSCULTATION: clear to auscultation bilaterally Cardio: COMMON NORMALS: regular rate, regular rhythm, S1 normal heart sound present and S2 normal heart sound present RATE: regular rate RHYTHM: r egular rhythm HEART SOUNDS: S1 normal heart sound present and S2 normal heart sound present GI: COMMON NORMALS: Normal to inspection, nondistended, normoactive bowel sounds present and non-tender Extremity: COMMON NORMALS: no calf tenderness and no pedal edema Neuro: COMMON NORMALS: patient oriented x3 Psych: COMMON NORMALS: mental status grossly normal Skin: NARRATIVE SKIN EXAM: Area of cellulitis left foot, improving, erythema, warmth, tenderness improving Data 12/17/24 04:35 12/17/24 04:35 Micro: Microbiology 12/15/24 18:30 Blood Culture - Preliminary Blood NEGATIVE TO DATE 12/15/24 18:25 Blood Culture - Preliminary Blood NEGATIVE TO DATE A&P Assessment and plan 1. Hyperosmolar hyperglycemic state (HHS): 2. Pseudohyponatremia: 3. Hyperkalemia: 4. Dehydration: Plan: Hyperosmolar hyperglycemic state, resolved - pH 7.59, sodium 119, glucose 688, serum osmolality 288, -Resolved -Sensation to subcu insulin overnight Plan - Continue high-dose insulin -Lantus 10 units twice daily - Full code - Lovenox for DVT prophylaxis Hyperkalemia - Resolved - Telemetry monitoring Pseudohyponatremia, resolved Weight loss, fatigue, malaise - Etiology unclear - CT scan abdomen pelvis no acute findings - Potentially associated with type 1 diabetes? Will do autoantibody testing Diabetic wound/cellulitis - Left lower extremity - CT/CT foot LT w con [id number] IMPRESSION: 1. Mild cellulitis with edema involving the first and fifth metatarsophalangeal joints along the plantar surfaces. 2. No enhancing abscess identified. 3. No osteolysis or osteomyelitis identified by CT. - No surrounding erythema, swelling, warmth - CRP 35, Pro-Thomas 0.19, sed rate 18, blood cultures - Monitor Plan - IV vancomycin - IV Rocephin Full code Lovenox DVT prophylaxis PDMP PDMP Reviewed: Not Reviewed Attestations 2 Medical Necessity Statement*: Patient requires hospitalization for diabetic wound, cellulitis Diagnoses Hyperosmolar hyperglycemic state (HHS) E11.00 Pseudohyponatremia R79.89 Hyperkalemia E87.5 Dehydration E86.0
[2024-12-18 03:59] VITALS: BP 108/73; PULSE 74; RESP 16; TEMP 36.2; O2SAT 99
[2024-12-18] MEDS: pantoprazole 40 mg SDV IVP (04:36)
[2024-12-18 05:07] LABS: Hematocrit 33.2 % (37-53); Hemoglobin 11.20 g/dL (11.27-16.99); Mean Corpuscular HGB Conc 33.7 g/dL (30-55); Mean Corpuscular Hemoglobin 30.9 pg (27-33); Mean Corpuscular Volume 91.7 fl (82-101); Nucleated Red Blood Cells % 0 %; Platelet Count 259 10^3/cmm (157-399); Red Blood Count 3.62 10^6/uL (3.85-5.65); White Blood Count 6.81 10^3/uL (3.29-11.43)
[2024-12-18 05:30] LABS: Anion Gap 15.2 (5-19); Blood Urea Nitrogen 10 mg/dL (6-20); Calcium 8.8 mg/dL (8.5-10.5); Carbon Dioxide 22 mmol/L (22-29); Chloride 106 mmol/L (98-107); Creatinine Clr Calc Pharmacy 128.3520; Glucose 144 mg/dL (65-115); Osmolality Calculated 290 mOsm/kg (285-295); Potassium 4.2 mmol/L (3.5-5.1); Sodium 139 mmol/L (136-145)
[2024-12-18] MEDS: insulin glargine 100 units/1 mL 10 UNIT SUBCUT (06:48)
[2024-12-18] MEDS: SPIRONOLACTONE 200 MG 200 EACH PO (06:48)
[2024-12-18 08:00] VITALS: BP 120/70; PULSE 85; RESP 17; TEMP 36.5; O2SAT 99
[2024-12-18 08:11] VITALS: PULSE 83; RESP 16; O2SAT 98
--- NOTE | 2024-12-18 10:21 | PC.SOCIAL ---
IMM Update pg 2 of IMM updated and reviewed w/ patient. Copy provided and copy dated, initialed and placed in chart.
--- NOTE | 2024-12-18 10:35 | PC.SOCIAL ---
[facility] Udpate pg 2 of [facility] Udpated and reviewed w/ patient. Copy provided and copy dated, initialed and placed in chart.
[2024-12-18 11:12] VITALS: BP 114/73; PULSE 88; RESP 16; TEMP 36.8; O2SAT 99
[2024-12-18 11:31] VITALS: BP 110/69; PULSE 90; RESP 16; TEMP 36.8; O2SAT 98
--- NOTE | 2024-12-18 11:31 | P.DS_ITS ---
Discharge Providers Date of Admission: 12/15/24 16:40 Date of Discharge: December 18, 2024 Attending Provider at Admission: James Bueno MD Attending Provider at Discharge: James Bueno MD Primary Care Provider: Deepika Mendez MD Diagnoses at Discharge Discharge Diagnosis 1. Hyperosmolar hyperglycemic state (HHS): 2. Pseudohyponatremia: 3. Hyperkalemia: 4. Dehydration: Reason for Visit Reason for Visit: hyperglycemia; weakness Hospital Course Hospital Course Jose Morgan is a 59 year old male with a past medical history of type 2 diabetes mellitus, COPD peripheral vascular disease, hyperlipidemia, who presents [facility] due to polyuria, polydipsia, fatigue, malaise, abdominal pain dizziness, weight loss over 20 pounds last few months, generalized weakness. Patient tells me that for the last few weeks, he has been feeling fatigue, malaise, dizziness, he has had weight loss over 20 pounds, generalized weakness with hyperglycemia. His primary care provider did blood work on 10 December, his blood sugar was elevated, there was concerns for DKA, so he went to the emergency room at [facility], he tells me that they did a workup in the emergency room got his blood sugars down and discharged him home, but he continues to have fatigue, malaise, abdominal pain, dizziness, generalized weakness, no facial droop, no slurring his words, no full code weakness, no diarrhea, has constipation, no cough, no dysuria, he does have a diabetic wound he tells me on the left foot that bothers him, but no worsening, no chest pain, no palpitations, currently he is undergoing transgender evaluation, he was on estradiol 2 weeks ago it was recently switched to another medication he does not remember She was able to tolerate the procedure for hyperosmolar hyperglycemic state, monitored in ICU, on insulin drip, transition to subcu insulin, Lantus, NovoLog. Overall patient clinically improved, moved to medical floors, will be discharged on Lantus, NovoLog with instructions as below For weight loss, fatigue, malaise, potentially associated with type 1 diabetes mellitus. I have ordered autoantibody testing, please follow-up with Dr. Nesbitt as outpatient Patient had diabetic wound/cellulitis received IV antibiotics as inpatient, no wound care required, will have him follow-up with podiatry as outpatient, continue routine foot exams, discharged on p.o. robotics For patient's reducible umbilical hernia, advised patient to monitor, if at any point he has abdominal pain and or is not reducible this is a surgical emergency and he should immediately call 911 or come to the hospital. Physical Exam Const: COMMON NORMALS: no acute distress and patient oriented x3 Resp: COMMON NORMALS: normal respiratory effort, No retractions, No use of accessory muscles and clear to auscultation bilaterally AUSCULTATION: clear to auscultation bilaterally Cardio: COMMON NORMALS: regular rate, regular rhythm, S1 normal heart sound present and S2 normal heart sound present RATE: regular rate RHYTHM: regular rhythm HEART SOUNDS: S1 normal heart sound present and S2 normal heart sound present GI: COMMON NORMALS: Normal to inspection, nondistended, normoactive bowel sounds present and non-tender OTHER: Reducible umbilical hernia Extremity: COMMON NORMALS: no pedal edema Neuro: COMMON NORMALS: patient oriented x3 Psych: COMMON NORMALS: mental status grossly normal Discharge Data Studies Completed and Pending Completed Studies During Hospitalization Category Date Time Status CT chest abdomen pelvis [[place] [id number] Cat Scan 12/15/24 16:57 Completed ] Stat CT foot LT w con [id number] Routine Cat Scan 12/16/24 09:48 Completed XR chest 1V portable [id number] Stat Exams 12/15/24 14:50 Completed Pending at discharge Category Date Time Status Basic Metabolic Panel AM LABS Lab 12/19/24 04:00 Ordered Blood Culture Stat Lab 12/15/24 18:30 Results Complete Blood Count w/Auto AM LABS Lab 12/19/24 04:00 Ordered GAD65 IA [Diabetes Type 1 Autoantibody] Routine Lab 12/17/24 14:26 Received Osmolality Serum Stat Lab 12/15/24 18:25 Received Vancomycin Trough Timed Lab 12/18/24 11:30 Ordered Radiology Impressions Chest X-Ray 12/15/24 14:50 IMPRESSION: No acute findings. Chest/Abdomen/Pelvis CT 12/15/24 16:57 IMPRESSION: 1. No acute findings in the chest. 2. Sub 6 mm pulmonary nodules. For patients at low risk (minimal or absent history of smoking and of other known risk factors), no routine follow-up is indicated. For patients at high risk (history of smoking or of other known IMPRESSION: 1. Gastric wall thickening is likely exaggerated by underdistention. However, underlying gastritis is not excluded. 2. Moderate colonic stool can be seen with constipation. Foot CT 12/16/24 09:48 IMPRESSION: 1. Mild cellulitis with edema involving the first and fifth metatarsophalangeal joints along the plantar surfaces. 2. No enhancing abscess identified. 3. No osteolysis or osteomyelitis identified by CT. Laboratory Results WBC 6.81 10^3/uL (3.29-11.43) 12/18/24 04:41 RBC 3.62 10^6/uL (3.85-5.65) L 12/18/24 04:41 Hgb 11.20 g/dL (11.27-16.99) L 12/18/24 04:41 Hct 33.2 % (37-53) L 12/18/24 04:41 MCV 91.7 fl (82-101) 12/18/24 04:41 MCH 30.9 pg (27-33) 12/18/24 04:41 MCHC 33.7 g/dL (30-55) 12/18/24 04:41 RDW 13.0 % (12.1-15.1) 12/18/24 04:41 Plt Count 259 10^3/cmm (157-399) 12/18/24 04:41 MPV 9.7 fL (7.4-10.4) 12/18/24 04:41 Neut % (Auto) 69.0 % 12/18/24 04:41 Lymph % (Auto) 21.7 % 12/18/24 04:41 [place] % (Auto) 7.0 % 12/18/24 04:41 Eos % (Auto) 0.3 % 12/18/24 04:41 Baso % (Auto) 0.4 % 12/18/24 04:41 Neut # (Auto) 4.69 10^3/uL (1.8-7.7) 12/18/24 04:41 Lymph # (Auto) 1.5 10^3/uL (0.8-4.8) 12/18/24 04:41 [place] # (Auto) 0.5 10^3/uL (0.2-0.9) 12/18/24 04:41 Eos # (Auto) 0.0 10^3/uL (0.0-0.8) 12/18/24 04:41 Baso # (Auto) 0.0 10^3/uL (0.0-0.1) 12/18/24 04:41 Nucleated RBC % (auto) 0 % 12/18/24 04:41 Nucleated RBCs # 0.0 /100WBC 12/18/24 04:41 ESR 18 mm/hr (0-10) H 12/15/24 15:09 Specimen Type Arterial 12/15/24 16:18 Sample Site Radial, left 12/15/24 16:18 ABG pH 7.59 (7.35-7.45) H* 12/15/24 16:18 ABG pCO2 18.1 mmHg (35-45) L* 12/15/24 16:18 ABG pO2 144.0 mmHg (80.0-100.0) H 12/15/24 16:18 ABG PO2/FiO2 Ratio 685 12/15/24 16:18 ABG HCO3 17.2 mmol/L (22-26) L 12/15/24 16:18 ABG O2 Saturation 98.8 12/15/24 16:18 ABG Base Excess -2.5 mmol/L (-2.0-2.0) L 12/15/24 16:18 Osei Test Pos 12/15/24 16:18 A-a O2 Gradient Not Reportable 12/15/24 16:18 Hematocrit 36.6 % (42-52) L 12/15/24 16:18 Hgb O2 Saturation 98.1 % (95-100) 12/15/24 16:18 Carboxyhemoglobin 0.8 %THgb (0.4-20.1) 12/15/24 16:18 Methemoglobin < 0.0 % (0.4-1.5) L 12/15/24 16:18 Total Hemoglobin 12.0 g/dL (14-18) L 12/15/24 16:18 Sodium 121.0 mmol/L (131-143) L 12/15/24 16:18 Potassium 5.2 mmol/L (3.5-5.0) H 12/15/24 16:18 Glucose 437.0 mg/dL (70-115) H 12/15/24 16:18 Ionized Calcium 1.2 mmol/L (1.1-1.4) 12/15/24 16:18 O2 Delivery Device Room air 12/15/24 16:18 FiO2 21.0 % 12/15/24 16:18 Painting Technician ID glc 12/15/24 16:18 Sodium 139 mmol/L (136-145) 12/18/24 04:41 Potassium 4.2 mmol/L (3.5-5.1) 12/18/24 04:41 Chloride 106 mmol/L (98-107) 12/18/24 04:41 Carbon Dioxide 22 mmol/L (22-29) 12/18/24 04:41 Anion Gap 15.2 (5-19) 12/18/24 04:41 BUN 10 mg/dL (6-20) 12/18/24 04:41 Creatinine 0.6 mg/dL (0.7-1.2) L 12/18/24 04:41 GFR Calculation 138.4 mL/min (90-130) H 12/18/24 04:41 Glucose 144 mg/dL (65-115) H 12/18/24 04:41 POC Glucose 178 mg/dL (70-110) H 12/18/24 06:22 C-Peptide 2.64 ng/mL (0.80-3.85) 12/17/24 14:26 Calculated Osmolality 290 mOsm/kg (285-295) 12/18/24 04:41 Lactic Acid 1.5 mmol/L (0.5-2.2) 12/15/24 18:25 Calcium 8.8 mg/dL (8.5-10.5) 12/18/24 04:41 Magnesium 1.8 mg/dL (1.7-2.3) 12/15/24 15:09 Total Bilirubin 0.4 mg/dL (0.15-1.2) 12/15/24 15:09 AST 8 U/L (0-40) 12/15/24 15:09 ALT 8 U/L (0-41) 12/15/24 15:09 Alkaline Phosphatase 73 U/L (40-130) 12/15/24 15:09 Troponin T Baseline 14 ng/L (0-15) 12/15/24 15:09 Troponin T 120 Minute 15.54 ng/L (0-15) H 12/15/24 17:04 Delta Troponin T 1.54 ABS# (0-10) 12/15/24 17:04 Troponin T Hi Sens 6Hr 14.84 ng/L (0-15) 12/15/24 21:15 Troponin T Hi Sens 6Hr Delta 0.84 ng/L (0-12) 12/15/24 21:15 C-Reactive Protein 35.9 mg/L (0.0-4.9) H 12/15/24 15:09 Total Protein 6.1 g/dL (6.6-8.7) L 12/15/24 15:09 Albumin 3.3 g/dL (3.5-5.2) L 12/15/24 15:09 Globulin 2.8 g/dL (1.3-4.6) 12/15/24 15:09 Triglycerides 218 mg/dL (0-150) H 12/15/24 18:25 Cholesterol 88 mg/dL (0-200) 12/15/24 18:25 LDL Cholesterol, Calc 10 mg/dL (50-129) L 12/15/24 18:25 HDL Cholesterol 34 mg/dL (60-100) L 12/15/24 18:25 LDL/HDL Ratio 0.29 RATIO (0.00-3.22) 12/15/24 18: Cholesterol/HDL Ratio 2.59 mg/dL (1.0-5.00) 12/15/24 18:25 Lipase 77 U/L (13-60) H 12/15/24 18:25 Procalcitonin 0.19 ng/mL (0-0.5) 12/15/24 15:09 TSH 1.00 uIU/mL (0.27-4.20) 12/15/24 15:09 Random Cortisol 15.32 ug/dL (2.47-19.5) 12/15/24 15:09 Urine Color Yellow (Yellow) 12/15/24 15:08 Urine Appearance Clear (CLEAR) 12/15/24 15:08 Urine pH 6.0 (5-7) 12/15/24 15:08 Ur Specific [place] 1.023 (1.005-1.030) 12/15/24 15:08 Urine Protein Negative (Negative) 12/15/24 15:08 Urine Glucose (UA) 2+ (Normal) H 12/15/24 15:08 Urine Ketones 1+ (Negative) H 12/15/24 15:08 Urine Blood Negative (Negative) 12/15/24 15:08 Urine Nitrate Negative (Negative) 12/15/24 15:08 Urine Bilirubin Negative (Negative) 12/15/24 15:08 Urine Urobilinogen 0.2 mg/dL (Negative) 12/15/24 15:08 Ur Leukocyte Esterase Negative (Negative) 12/15/24 15:08 Urine RBC 0-2 /hpf (0-2) 12/15/24 15:08 Urine WBC 0-5 /hpf (0-5) 12/15/24 15:08 Ur Squamous Epith Cells 0-5 /hpf (0-5) 12/15/24 15:08 Amorphous Sediment Not Reportable 12/15/24 15:08 Urine Bacteria None seen /hpf (NONE) 12/15/24 15:08 Hyaline Casts 0-4 /lpf H 12/15/24 15:08 Serum Ketones Negative (Negative) 12/15/24 15:09 Hepatitis A IgM Ab Non-reactive (Nonreactive) 12/15/24 15:09 Hep Bs Antigen Non-reactive (Nonreactive) 12/15/24 15:09 Hep B Core IgM Ab Non-reactive (Nonreactive) 12/15/24 15:09 Hepatitis C Antibody Non-reactive (Nonreactive) 12/15/24 15:09 HIV 1&2 Ab & HIV 1 Ag Non-reactive (Non-Reactiv) 12/15/24 15:09 HIV 1&2 Antibody Non-reactive (Non-Reactiv) 12/15/24 15:09 Influenza A (PCR) Negative (Negative) 12/15/24 17:35 Influenza Type B (PCR) Negative (Negative) 12/15/24 17:35 RSV (PCR) Negative (Negative) 12/15/24 17:35 SARS-CoV-2 (PCR) Negative (Negative) 12/15/24 17:35 Vitals Last Vital Signs Temp 98.2 F 12/18/24 11:12 Pulse 88 12/18/24 11:12 Resp 16 12/18/24 11:12 BP 114/73 12/18/24 11:12 Pulse Ox 99 12/18/24 11:12 O2 Del Method Room Air 12/18/24 11:12 O2 Flow Rate 2 12/15/24 16:39 Discharge Plan Discharge Patient Disposition: Home Condition: Stable Prescriptions: New insulin glargine [Basaglar KwikPen U-100 Insulin] 100 unit/mL (3 mL) insulin pen 15 unit SUBCUT BID 30 Days Qty: 15 0RF insulin aspart U-100 [Novolog FlexPen U-100 Insulin] 100 unit/mL (3 mL) ins ulin pen See Rx Instructions .ROUTE .COMPLEX MDD 60 Qty: 15 0RF Rx Instructions: Inject, subcut, 3 times daily, after meals, based on moderate-dose insulin sliding scale (DME) gulcometer testing kit See Rx Instructions .Route .MEDSUPPLY Qty: 1 0RF Rx Instructions: Lancets # 100 Strips # 100 amoxicillin-pot clavulanate 875-125 mg tablet 1 tab PO BID 5 Days Qty: 10 0RF doxycycline hyclate 100 mg tablet 100 mg PO BID 5 Days Qty: 10 0RF glucagon HCl [Glucagon (HCl) Emergency Kit] 1 mg recon soln 1 mg IM Q20M PRN (Reason: hypoglycemia) Qty: 1 0RF Rx Instructions: until target blood sugar attained Continued estradiol 2 mg tablet 6 mg PO DAILY rosuvastatin 20 mg tablet 20 mg PO DAILY Qty: 90 0RF mupirocin [Centany] 2 % ointment 1 applic topical TID Qty: 15 0RF spironolactone 100 mg tablet 100 mg PO QPM spironolactone 200 mg PO QAM aspirin 81 mg tablet,chewable 81 mg PO DAILY 30 Days Qty: 90 0RF Held metformin 500 mg tablet 500 mg PO BID Hold Instructions: Resume on 01/08/25. hold until you see dr. nesbitt Discharge Order = DC NOW: Discharge Order (Routine); Ordered 12/18/24 Ordered By: James Bueno Referrals: Salinas Su MD [Physician, General Surgery] - 1-3 days Referral Note: umbilical hernia Anibal Lee DPM [Physician, Podiatry] - 4-7 days Deepika Mendez MD [Primary Care Provider, Family Practice] Maria Luz Nesbitt MD [Physician, Endocrinology] - 7-10 days Discharge Diet: Diabetic Discharge Activity: Resume usual activity Patient Instructions: Opioid Safety, Patient Portal & Patt Instructions Activity Restrictions/Additional Instructions: -Please monitor your blood sugars closely -Monitor your blood sugars 3 times daily as after meals -Please record your blood sugars, and a blood sugar log -For your NovoLog -Please inject blood sugar after meals based on sliding scale provided -Do not inject insulin if you do not eat as hypoglycemia kills -This is a NovoLog sliding scale -Insulin sliding ?fingerstick? Insulin ?141-180?4 units/sq 181-220?6 units/sq ?221-260?8 units/sq ?261-300 10 units/sq ?301-350?12 units/sq ?351-400 14 units/sq ?401-450?16 units/sq >450? 18 units/sq -If your blood sugar is greater than 500 go to the emergency room -If your blood sugar is less than 60 or at anytime you feel lightheaded or dizzy or diaphoretic or have chest palpitations check your blood sugar, and eat a hard candy or drink orange juice and go immediately to the emergency room -Remember hypoglycemia kills, so if his blood sugar is less than 60 we have to increase it by taking in a sugary meal such as a hard candy or orange juice and go to the emergency room -If you have any questions please call us where here to help - Please monitor your feet daily - Please follow-up with podiatry - For your type I versus type 2 diabetes please follow-up with Dr. Nesbitt - See primary care - If you have sudden onset abdominal pain, abdominal pain go to emergency room, follow-up with general surgery Discharge Attestations Time Spent in Discharge Care*: greater than 30 min Quality Metrics Clinical Quality Measures [ No reported AMI, CVA or VTE this stay] Coding Level of Care Code 51794 Total time (in minutes) for Discharge: 45 Diagnoses Hyperosmolar hyperglycemic state (HHS) E11.00 Pseudohyponatremia R79.89 Hyperkalemia E87.5 Dehydration E86.0
[2024-12-18 14:19] VITALS: BP 110/69; PULSE 90; RESP 16; TEMP 36.8; O2SAT 98
== END 2024-12-18 13:45 | disposition home health service (06) | DRG 638 ==
LOC: ER 16:15 → ICU 16:49 → MEDSURG 12-16 21:36
PROVIDERS: Admitting Provider Family Medicine; Emergency Provider Emergency Medicine; PCP Family Medicine; Visit Provider Family Medicine
DX: E11.00 Type 2 diabetes mellitus with hyperosmolarity without nonketotic hyperglycemic-hyperosmolar coma (NKHHC) (principal); L03.116 Cellulitis of left lower limb; E87.5 Hyperkalemia; E86.0 Dehydration; E11.51 Type 2 diabetes mellitus with diabetic peripheral angiopathy without gangrene; E11.628 Type 2 diabetes mellitus with other skin complications; E78.5 Hyperlipidemia, unspecified
CPT/HCPCS: 36415; 36416; 36600; 71045; 71250; 73701; 74176; 80048; 80051; 80053; 80061; 80074; 80202; 81001; 82009; 82330; 82533; 82805; 82962; 83605; 83690; 83735; 83930; 84145; 84443; 84484; 84681; 85025; 85651; 86140; 86337; 86341; 87040; 87637; 87806; 93005; 94664; 96372; 96374; 99285; J0612; J0696; J1650; J1815; J2270; J2470; J3372; J3373; J7030; J9999

== ENCOUNTER → 2024-12-31 13:15 | Outpatient (BNVA) | payer MEDICARE, MEDICAID, SELFPAY | PROVIDERS: PCP Family Medicine; Visit Provider Surgery | DX: K46.9 Unspecified abdominal hernia without obstruction or gangrene (principal); E11.9 Type 2 diabetes mellitus without complications; E78.2 Mixed hyperlipidemia; E11.65 Type 2 diabetes mellitus with hyperglycemia | CPT/HCPCS: 99203; 99204 ==

== ENCOUNTER → 2025-01-13 10:23 | Outpatient (BNVA) | payer MEDICARE, MEDICAID, SELFPAY | PROVIDERS: PCP Family Medicine; Visit Provider Internal Medicine | DX: E11.9 Type 2 diabetes mellitus without complications (principal); E78.2 Mixed hyperlipidemia | CPT/HCPCS: 99214 ==

== ENCOUNTER → 2025-01-22 13:12 | Outpatient (BNVA) | payer MEDICARE, MEDICAID, SELFPAY | PROVIDERS: PCP Family Medicine; Visit Provider Podiatrist Foot & Ankle Surgery | DX: E11.42 Type 2 diabetes mellitus with diabetic polyneuropathy (principal); G62.9 Polyneuropathy, unspecified; I73.9 Peripheral vascular disease, unspecified; M79.606 Pain in leg, unspecified; I99.8 Other disorder of circulatory system; Z98.62 Peripheral vascular angioplasty status; Z79.4 Long term (current) use of insulin | CPT/HCPCS: 99203 ==

== ENCOUNTER → 2025-02-06 11:31 | Outpatient (BNVA) | payer MEDICARE, MEDICAID, SELFPAY | PROVIDERS: PCP Family Medicine; Visit Provider Family Medicine | DX: E11.65 Type 2 diabetes mellitus with hyperglycemia (principal); E11.00 Type 2 diabetes mellitus with hyperosmolarity without nonketotic hyperglycemic-hyperosmolar coma (NKHHC); G57.93 Unspecified mononeuropathy of bilateral lower limbs | CPT/HCPCS: 80048; 83036; 85025 ==